=== PATIENT | male | born 1990 | race Caucasian/White ===

== ENCOUNTER 2016-07-29 09:32 | Emergency (ER) | payer OTHER ==
[2016-07-29 09:41] VITALS: RESP 16; O2SAT 99
[2016-07-29 09:56] LABS: COLOR AMBER; LEUKOCYTE ESTERASE,URINE NEGATIVE (NEGATIVE); NITRITE,URINE NEGATIVE (NEGATIVE)
--- NOTE | 2016-07-29 10:01 | EDPHY ---
HPI/HX/ROS/PE/MDM Narrative: CHIEF COMPLAINT: Lower abdominal pain, urinary symptoms. HPI: The patient is a 25-year-old male who presents with pelvic pain and urinary urgency. He admits mild dysuria. The pain is described as shooting. He denies testicular pain, penile lesions, or penile discharge. Over the weekend he had a cough and fever but these went away. He denies new sexual partners in the past month. REVIEW OF SYSTEMS: Aside from elements discussed in the HPI, a comprehensive 10-point review of systems was reviewed and is negative. PMH: UTI. SOCIAL HISTORY: Nonsmoker. PHYSICAL EXAM: General: Patient is alert, in no acute distress. ENT: Eyes are normal to inspection. ENT inspection normal. Neck: Normal inspection. Full range of motion. Respiratory: No respiratory distress. Breath sounds normal bilaterally. Cardiovascular: Regular rate and rhythm. Strong peripheral pulses. Abdomen: The abdomen is nontender to palpation. There are no peritoneal signs. There are normal bowel sounds. Male : Normal exam. Back: Normal to inspection. No tenderness to palpation. Skin: Normal color. No rash. Warm and dry. Extremities: Normal appearance. Full range of motion. Neuro: Oriented x3. Normal motor function. Normal sensory function. Portions of this note were transcribed by an ED scribe. I personally performed the history, physical exam, and medical decision making; and confirm the accuracy of the information in the transcribed note. ED Course: Urinalysis ordered. MDM: This is a young healthy male with signs and symptoms of a UTI. He is adamant about no recent sexual contacts, so I think STD is unlikely but have sent GC/C samples as precaution. It is certainly unusual for a male to have a UTI, and he tells me he has had one in the past as well, which suggests possible anatomic issue. He has no abdominal pain or tenderness to suggest appendicitis , bowel issue or kidney stone. We will place him on empiric Keflex and refer to Urology. - Data Points Laboratory Results: 07/29/16 07/29/16 10:45 09:45 Urine Color LASHANDA Urine Appearance MODERATELY TURBID Urine pH 6.0 (5.0-7.5) Ur Specific [place] 1.026 (1.002-1.030) Urine Protein 2+ H (NEGATIVE) Urine Ketones TRACE H (NEGATIVE) Urine Blood 3+ H (NEGATIVE) Urine Nitrate NEGATIVE (NEGATIVE) Urine Bilirubin NEGATIVE (NEGATIVE) Urine Urobilinogen NEGATIVE EU EU (0.2-1.0) Ur Leukocyte Esterase NEGATIVE (NEGATIVE) Urine RBC 50-182 /hpf H /hpf (0-3) Urine WBC 15-25 /hpf H /hpf (0-3) Ur Epithelial Cells NONE SEEN /lpf /lpf (NONE-1+) Calcium Oxalate Crystal PRESENT /hpf /hpf (NONE-1+) Urine Mucus 2+ /lpf H /lpf (NONE-1+) Ur Culture Indicated? INDICATED H (NI) Urine Glucose NEGATIVE (NEGATIVE) C.trachomatis RNA (TMA) Pending N.gonorrhoeae RNA (TMA) Pending General Time Seen by Provider: 07/29/16 09:59 Initial Vital Signs: Initial Vital Signs Temperature (C) 37 C 07/29/16 09:39 Heart Rate 76 07/29/16 09:39 Respiratory Rate 16 07/29/16 09:39 Blood Pressure 129/75 H 07/29/16 09:39 O2 Sat (%) 99 07/29/16 09:39 O2 Delivery Mode Room Air Allergies/Adverse Reactions: No Known Allergies Allergy (Unverified 07/29/16 09:41) Home Medications: Medication Instructions Recorded Cephalexin [Keflex] 500 mg PO Q6H #28 cap 07/29/16 Departure - Departure Disposition: Home, Routine, Self-Care Clinical Impression: UTI (urinary tract infection) Condition: Good Instructions: Urinary Tract Infection in Men (ED) Additional Instructions: Call Dr. Mares, urology, in the next 2-3 days if symptoms are not improving. Return to the emergency department if you experience any serious worsening of condition. Referrals: Naun Mares MD [Medical Doctor] - As per Instructions Prescriptions: Cephalexin [Keflex] 500 mg PO Q6H #28 cap Report Scribed for: Navjot White Report Scribed by: Jc Oliva Date of Report: 07/29/16 Time of Report: 09:59
[2016-07-29 10:23] LABS: MUCUS 2+ /lpf (NONE-1+); RBC,URINE 50-182 /hpf (0-3); WBC,URINE 15-25 /hpf (0-3)
[2016-07-29] MEDS ORDERED: CEPHALEXIN 500 MG CAP PO ONE (11:00)
[2016-07-29 11:28] VITALS: BP 112/73; PULSE 74; TEMP 98.6
[2016-07-30 15:15] LABS: CHLAMYDIA AMPLIFICATION GENPRB NEGATIVE (NEGATIVE)
== END 2016-07-29 11:36 | disposition home or self-care (01) ==
DX: N39.0 Urinary tract infection, site not specified (principal); B96.89 Other specified bacterial agents as the cause of diseases classified elsewhere